=== PATIENT | male | born 1975 | race Caucasian/White ===

== ENCOUNTER → 2016-11-18 | Outpatient (CLI) | payer BC ==
[2016-11-18 14:28] LABS: Potassium 4.3 mmol/L (3.5-5.1)
[2016-11-18 14:38] LABS: Basophils % (A) 1 %; CH 33.3; CHCM 36.5; Eosinophils # (A) 0.2 k/uL (0-0.7); Eosinophils % (A) 4 %; HCT 45.2 % (39.0-53.0); HDW 2.65; HGB 16.4 gm/dL (13.0-17.5); Luc # (Auto) 0.15; Luc % (Auto) 3; Lymphocytes # (A) 1.9 k/uL (1.0-4.8); Lymphocytes % (A) 37 %; MCH 33.3 pg (25.0-35.0); MCHC 36.3 g/dL (31.0-37.0); MCV 91.7 fL (80.0-100.0); Mean Platelet Volume 6.5; Monocytes # (A) 0.3 k/uL (0-1.0); Monocytes % (A) 7 %; Neutrophils # (A) 2.4 k/uL (1.3-7.7); Neutrophils % (A) 48 %; RBC 4.93 m/uL (4.30-5.90); RDW 12.5 % (11.5-15.5); WBC (Perox) 5.01
== END | disposition home or self-care (01) ==
LOC: LABPAT 13:25
PROVIDERS: ATTEND Orthopaedic Surgery
DX: Z01.818 Encounter for other preprocedural examination (principal); M23.91 Unspecified internal derangement of right knee
CPT/HCPCS: 80051; 85025

== ENCOUNTER 2016-11-21 07:58 | Day surgery (SDC) | payer BC ==
[2016-11-15 12:04] VITALS: BMI 31.0
--- NOTE | 2016-11-21 07:26 | P.HPOR ---
History of Present Illness H&P Date: 11/21/16 Chief Complaint: Left knee pain 41-year-old patient seen with progressive left knee pain. After treatment options were discussed, patient elected to proceed with arthroscopy. Past Medical History Past Medical History: Asthma, GERD/Reflux, Osteoarthritis (OA) History of Any Multi-Drug Resistant Organisms: None Reported Past Surgical History: Appendectomy Additional Past Surgical History / Comment(s): carpal tunnel surgery bilat 15 yrs ago, injections to pati knees, repair of torn miniscus Past Anesthesia/Blood Transfusion Reactions: No Reported Reaction Smoking Status: Never smoker - Past Family History Mother Family Medical History: Cancer Additional Family Medical History / Comment(s): hx. mom - breast Father Family Medical History: Musculoskeletal Disorder Additional Family Medical History / Comment(s): father-multiple sclerosis Medications and Allergies Home Medications Medication Instructions Recorded Confirmed Type Azelastine HCl [Astelin] 2 spray EA NOSTRIL BID 08/23/13 11/15/16 History Fluticasone/Salmeterol [Advair 1 puff INHALATION Q12HR 08/23/13 11/15/16 History 500-50 Diskus] Levocetirizine Dihydrochloride 7.5 mg PO BID 08/23/13 11/15/16 History [Xyzal] Montelukast [Singulair] 10 mg PO HS 08/23/13 11/15/16 History Omalizumab [Xolair] 375 mg SQ DIRECTED 11/20/15 11/15/16 History Meloxicam 15 mg PO Q6HR PRN 11/15/16 11/15/16 History Omeprazole [PriLOSEC] 10 mg PO DAILY 11/15/16 11/15/16 History Allergies Allergy/AdvReac Type Severity Reaction Status Date / Time Sulfa (Sulfonamide Allergy Rash/Hives Verified 11/15/16 11:55 Antibiotics) Physical Examination Osteopathic Statement: *. No significant issues noted on an osteopathic structural exam other than those noted in the History and Physical/Consult. - Knee left Effusion grade: grade 1 Tenderness with palpation: medial ROM: extension: 0 degrees ROM: flexion: 120 degrees Meniscal tests: medial meniscal tests: positive, medial joint line pain: positive Results X-ray left: Mild medial compartment osteoarthritis, bipartite patella MRI left knee: Medial meniscal tear Assessment and Plan Plan: Assessment: Internal derangement left knee with medial meniscal tear Plan: Arthroscopy left knee with partial meniscectomy and debridement Time with Patient: Less than 30
[~2016-11-21 07:58] MED LIST: DEXAMETHASONE SOD PHOSPHATE 10 MG/ML 1 ML VIAL IV ONE; HYDROmorphone 1 MG/ML 1 ML SYRINGE IVP PRN; LACTATED RINGERS 1,000 ML IV SCH; ONDANSETRON 4 MG/2 ML VIAL IVP ONE; ceFAZolin 2 GM in SODIUM CHLORIDE 0.9% 100 ML IVPB ONE
[2016-11-21] MEDS ORDERED: LIDOCAINE 1% 20 ML VIAL (10MG/ML) FOR IV START INTRADERMA ONE (08:41)
[2016-11-21] MEDS ORDERED: fentaNYL (PF) 50 MCG/ML 2 ML AMP ONE (09:07)
[2016-11-21] MEDS ORDERED: MIDAZOLAM 2 MG/2 ML VIAL ONE (09:07)
[2016-11-21] MEDS ORDERED: LIDOCAINE 1% INJ 10MG/ML (20 ML MDV) ONE (09:07)
[2016-11-21] MEDS ORDERED: SUCCINYLCHOLINE CHLORIDE 100 MG/5 ML SYR IV ONE (09:07)
[2016-11-21] MEDS ORDERED: KETOROLAC 30 MG/ML 1 ML VIAL ONE (09:07)
[2016-11-21] MEDS ORDERED: PROPOFOL 10 MG/ML 20 ML VIAL IV ONE (09:07)
[2016-11-21] MEDS ORDERED: BUPIVACAINE (PF) 0.25% 30 ML VIAL SQ ONE ×2 (09:14→09:56)
--- NOTE | 2016-11-21 10:10 | P.OP ---
Date of Procedure: 11/21/16 Preoperative Diagnosis: Internal derangement left knee Postoperative Diagnosis: 1. Tear medial and lateral meniscus left knee 2. 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 Grade 3/4 chondromalacia patellofemoral joint left knee 5. Reactive synovitis medial, lateral and suprapatellar compartments left knee Procedure(s) Performed: 1. Arthroscopic partial medial and lateral meniscectomy left knee 2. Arthroscopic chondroplasty medial femoral condyle and medial tibial plateau left knee 3. Arthroscopic chondroplasty lateral femoral condyle left knee with microfracture 4. Arthroscopic chondroplasty patellofemoral joint left knee 5. Arthroscopic partial synovectomy medial, lateral and suprapatellar compartments left knee Implants: Anesthesia: MARIA TA, local Surgeon: Jayant Hernandez Estimated Blood Loss (ml): 10 Pathology: none sent Condition: stable Disposition: PACU Indications for Procedure: 41-year-old patient seen with left knee pain. After having treatment options discussed, he elected to proceed with arthroscopy. Operative Findings: See description of procedure Description of Procedure: Patient was taken to the operative suite. Patient underwent a general anesthetic by the department of anesthesia. Patient was given preoperative antibiotics. The left lower extremity was placed in a well-padded arthroscopic leg pozo. The left leg was prepped and draped in the normal sterile orthopedic fashion. A lateral parapatellar and suprapatellar incision was made. Trochars were inserted. Arthroscopy was initiated. Suprapatellar pouch revealed thick reactive synovitis. The patellofemoral joint appeared articulate congruently. There was grade 3/4 chondromalacia of both the patella and femoral sulcus with osteochondral tears.. The scope was guided into the medial gutter. No loose bodies or plica were identified. The scope was then guided into the medial compartment. A medial parapatellar incision was made. Trocar inserted followed by probe. There was a complex tear posterior horn medial meniscus. There were grade 2/3 chondromalacia changes of the medial femoral condyle and grade 2/3 chondromalacia changes of the tibial plateau. There osteochondral tears noted on both sides. There was reactive synovitis anteriorly. A partial medial meniscectomy was performed on a stable tissue. I performed a chondroplasty of the medial femoral condyle and tibial plateau as well as a partial synovectomy. The residual meniscus was found to be stable as was the residual osteochondral surfaces medial femoral condyle and tibial plateau. Scope and probe were then guided into the intercondylar notch. Cruciates were identified, probed and found to be stable. The scope and probe were then guided into lateral compartment. There was a complex tear posterior medial corner lateral meniscus. Superficial tearing of the midbody as was a small radial tear anterior horn were noted as well. There was an area of grade 4 chondromalacia central weightbearing surface lateral femoral condyle with some peripheral osteochondral tears. Reactive synovitis noted anteriorly. A partial lateral meniscectomy was now performed on a stable tissue. I performed a chondroplasty lateral femoral condyle partial synovectomy. I proceeded with a microfracture to the lateral femoral condyle as her were areas of exposed bone. I reintroduced my shaver and made sure the residual suture surfaces was stable debriding out the area where perform the microfracture. The residual area was probed and found to be stable. The residual meniscus was stable. The scope was in guided back into the suprapatellar compartment. I introduced a motorized shaver into the super patellar compartment. I debrided some piecemeal fragments of meniscus I encountered. I performed a chondroplasty of both the patella and femoral sulcus getting down to stable tissue. I performed a partial synovectomy. The shaver was removed. I took one more look on the entire knee, no residual debris. Instruments were now removed from the joint. The joint was infiltrated with .25% Marcaine. Steri-Strips were applied to the portal sites. Sterile dressings were applied. The patient was placed into a DELFINA hose. No tourniquet was utilized. The patient was awakened, transferred to a bed and taken to recovery stable satisfactory condition.
[2016-11-21 10:31] VITALS: TEMP 98
[2016-11-21 11:31] VITALS: RESP 18
[2016-11-21 12:38] VITALS: BP 133/72; PULSE 72
== END 2016-11-21 12:30 | disposition home or self-care (01) ==
LOC: OR 07:58
PROVIDERS: ATTEND Orthopaedic Surgery
DX: S83.242A Other tear of medial meniscus, current injury, left knee, initial encounter (principal); S83.282A Other tear of lateral meniscus, current injury, left knee, initial encounter; X58.XXXA Exposure to other specified factors, initial encounter; M22.42 Chondromalacia patellae, left knee; M65.862 Other synovitis and tenosynovitis, left lower leg; Z79.51 Long term (current) use of inhaled steroids; Z79.899 Other long term (current) drug therapy; Z88.2 Allergy status to sulfonamides
CPT/HCPCS: 29880; J2250; J1100; J0690; J2405; J2001; J3010; J1885; J0330; J2704

== ENCOUNTER → 2022-08-07 | Outpatient (CLI) | payer BC ==
--- NOTE | 2022-08-07 10:48 | CA ---
Transthoracic Echo Report Name: Boy Rodriguez Age: 47 Gender: M : 1975 Exam Date: 08/07/2022 08:40 Exam Location: [facility] Ht (in): 69 Wt (lb): 220 Ordering Physician: Rianna Harrington DO Attending/Referring Phys: [id number], Len Blueprint Maker Grace Kelley, [facility] Procedure CPT: Indications: R002 Cardiac Hx: Technical Quality: Good Contrast 1: Total Dose (mL): Contrast 2: Total Dose (mL): MEASUREMENTS (Male / Female) Normal Values 2D ECHO LV Diastolic Diameter PLAX 4.4 cm 4.2 - 5.9 / 3.9 - 5.3 cm LV Systolic Diameter PLAX 2.8 cm IVS Diastolic Thickness 1.2 cm 0.6 - 1.0 / 0.6 - 0.9 cm LVPW Diastolic Thickness 1.2 cm 0.6 - 1.0 / 0.6 - 0.9 cm LV Relative Wall Thickness 0.5 RV Internal Dim ED PLAX 3.1 cm LA Systolic Diameter LX 3.8 cm 3.0 - 4.0 / 2.7 - 3.8 cm LA Volume 57.1 cm??? 18 - 58 / 22 - 52 cm??? M-MODE Aortic Root Diameter MM 3.6 cm MV E Point Septal Separation 0.7 cm AV Cusp Separation MM 2.5 cm DOPPLER AV Peak Velocity 150.8 cm/s AV Peak Gradient 9.1 mmHg MV Area PHT 4.0 cm??? Mitral E Point Velocity 110.7 cm/s Mitral A Point Velocity 113.7 cm/s Mitral E to A Ratio 1.0 MV Deceleration Time 189.3 ms MV E' Velocity 9.2 cm/s Mitral E to MV E' Ratio 12.0 TR Peak Velocity 224.2 cm/s TR Peak Gradient 20.1 mmHg Right Ventricular Systolic Press 24.4 mmHg FINDINGS Left Ventricle Left ventricular ejection fraction is estimated at 55-60 %. Left ventricular cavity size normal. Mild concentric left ventricular hypertrophy. Right Ventricle Normal right ventricular size and function. Right ventricular systolic pressure within normal limits. Right Atrium Normal right atrial size. Left Atrium Normal left atrial size. Mitral Valve Structurally normal mitral valve. No mitral stenosis,or prolapse. Trace mitral regurgitation. Aortic Valve Trileaflet aortic valve. No aortic valve stenosis or regurgitation.aortic valve sclerosis. Tricuspid Valve Structurally normal tricuspid valve. Trace to mild tricuspid regurgitation. Pulmonic Valve Structurally normal pulmonic valve. Trace pulmonic regurgitation. Pericardium Normal pericardium. No pericardial effusion. Aorta Normal size aortic root and proximal ascending aorta. CONCLUSIONS 1. Normal left ventricle size and systolic function 2. Trace mitral with trace to mild tricuspid regurgitation. Previewed by: Dr. Jay Paulino MD (Electronically Signed) Final Date: 07 Aug 2022 10:47
== END | disposition home or self-care (01) ==
LOC: RADECHMAIN 08:22
PROVIDERS: ATTEND Family Medicine
DX: I08.1 Rheumatic disorders of both mitral and tricuspid valves (principal)
CPT/HCPCS: 93306

== ENCOUNTER 2023-02-11 08:03 | Day surgery (SDC) | payer BC ==
[2023-02-06 14:58] VITALS: BMI 31.7
[2023-02-11] MEDS: SODIUM CHLORIDE 0.9% 1,000 ML IV SCH ×2 (08:33→20:57)
[2023-02-11 08:46] LABS: Basophils % (A) 1 %; Eosinophils # (A) 0.4 k/uL (0-0.7); Eosinophils % (A) 7 %; HCT 48.5 % (39.0-53.0); Lymphocytes # (A) 2.1 k/uL (1.0-4.8); Lymphocytes % (A) 40 %; MCH 33.1 pg (25.0-35.0); MCV 94.3 fL (80.0-100.0); Mean Platelet Volume 6.8; Monocytes # (A) 0.4 k/uL (0-1.0); Monocytes % (A) 7 %; Neutrophils # (A) 2.3 k/uL (1.3-7.7); Neutrophils % (A) 42 %; Platelet Count 233 k/uL (150-450); RBC 5.15 m/uL (4.30-5.90); WBC 5.3 k/uL (3.8-10.6)
[2023-02-11 08:59] LABS: ALT 41 U/L (4-49); AST 38 U/L (17-59); African American GFR (CKD) >90 (>60 ml/min/1.73 sqM); Albumin 4.6 g/dL (3.5-5.0); Alkaline Phosphatase 70 U/L (38-126); Anion Gap 10 mmol/L; Blood Urea Nitrogen 14 mg/dL (9-20); Calcium 9.3 mg/dL (8.4-10.2); Carbon Dioxide 27 mmol/L (22-30); Chloride 103 mmol/L (98-107); Glucose 98 mg/dL (74-99); Non-African American GFR(CKD) >90 (>60 ml/min/1.73 sqM); Potassium 4.2 mmol/L (3.5-5.1); Sodium 140 mmol/L (137-145); Total Bilirubin 0.9 mg/dL (0.2-1.3); Total Protein 7.7 g/dL (6.3-8.2)
[2023-02-11] MEDS ORDERED: LIDOCAINE 1% INJ 10MG/ML (20 ML MDV) ONE (11:13)
[2023-02-11] MEDS ORDERED: PROPOFOL 10 MG/ML 20 ML VIAL IV ONE (11:36)
[2023-02-11] MEDS ORDERED: fentaNYL (PF) 50 MCG/ML 2 ML AMP ONE (11:36)
[2023-02-11] MEDS ORDERED: MIDAZOLAM 2 MG/2 ML VIAL ONE (11:36)
[2023-02-11] MEDS ORDERED: SUCCINYLCHOLINE CHLORIDE 200 MG/10 ML VIAL IV ONE (11:36)
[2023-02-11] MEDS ORDERED: HEPARIN SODIUM,PORCINE 10,000 UNIT/ML 1 ML VIAL ONE (11:36)
[2023-02-11] MEDS ORDERED: ATROPINE SULFATE 0.4 MG/ML 1 ML VIAL ONE (11:36)
[2023-02-11] MEDS ORDERED: HEPARIN SOD,PORK IN 0.45% NACL 25,000 UNIT in 0.45% NACL 1 250ML.BAG IV ONE (11:55)
[2023-02-11] MEDS ORDERED: LIDOCAINE 1% INJ 10MG/ML (20 ML MDV) SQ ONE (12:35)
[2023-02-11] MEDS ORDERED: SODIUM CHLORIDE 0.9% 1,000 ML IV ONE (14:06)
[2023-02-11] MEDS ORDERED: IOPAMIDOL-370 100ML BTL INJ ONE (14:06)
[2023-02-11] MEDS ORDERED: ACETAMINOPHEN TAB 325 MG TAB PO PRN (15:21)
[2023-02-11] MEDS ORDERED: ACETAMINOPHEN IV (For NPO) 1,000 MG in EMPTY BAG 1 BAG IVPB ONE (15:21)
--- NOTE | 2023-02-11 15:30 | P.EPPROC ---
- EP Procedure Note Electrophysiology Procedure Note: PROCEDURE A. fib ablation with pulmonary vein isolation DIAGNOSIS Paroxysmal Atrial fibrillation, symptomatic, refractory to therapy RESULT No left atrial appendage mass seen on intracardiac echo, mild thickening of the pericardium Successful A. fib ablation/pulmonary vein isolation of all veins using cryo- ablation Complete entrance block in all 4 veins confirmed No evidence for phrenic nerve injury Esophageal deflection YES PROCEDURE DETAILS Written informed consent prior to procedure. Patient brought to the EP lab. General anesthesia given. Heparin administered. A city maintained above 300 seconds Both groins prepped and draped per protocol and venous sheaths placed. Esop hagus intubated, circa catheter for temperature monitoring an endoscope for possible esophageal deflection. Phrenic nerve monitoring performed. Esophageal temperature monitoring performed. Esophageal deflection performed if circa catheter overlapping with the balloon or circa temperature less than 27.5C Intracardiac echocardiography performed. Pericardium evaluated. Left atrial appendage evaluated. Left atrium evaluated along with pulmonary veins Transseptal catheterization performed under fluoroscopic guidance and intracardiac echo guidance Cryoablation sheath exchanged, balloon catheter along with achieve catheter placed in the left atrium. Pulmonary veins isolated in the following sequence: Left superior pulmonary vein followed by left inferior pulmonary vein, followed by right inferior pulmonary vein and lastly right superior pulmonary vein. Phrenic nerve stimulation along with capture thresholds within the SVC and right superior pulmonary vein to identify the phrenic nerve proximity to the cryo- balloon. Pulmonary veins isolated and confirmed with entrance and exit block. Phrenic nerve integrity confirmed at the end of the procedure Diagnostic catheters for the high right atrium, His bundle, coronary sinus placed. LA and RA pressures recorded RA pressure: 23/9/14 LA pressure: 23/9/15 Diagnostic EP study with coronary sinus pacing and recording Baseline measurements: Sinus cycle length: 54 ms, DC interval 172 ms, QRS 104 ms and QT 337 ms AH 86 and HV interval 52 ms Sinus node recovery times were 1143, 1248 and 1357 AV node Wenckebach block 340 ms Rapid atrial pacing after drug infusion No inducible atrial fibrillation Venous sheaths were removed and hemostasis assured with a closure device. Patient extubated and transferred to recovery PROCEDURES PERFORMED Diagnostic EP study CS pacing and recording Left and right transseptal catheterization Catheter the mapping of the tachycardia Intracardiac echocardiography Pulmonary vein isolation with transseptal and comprehensive EPS, [id number] Drug infusion, +[id number]
--- NOTE | 2023-02-11 19:09 | P.HPCAR ---
History of Present Illness This is Dr. Archuleta dictating an H/P on this patient The patient was interviewed and examined IMPRESSION / ASSESSMENT: Paroxysmal atrial fibrillation with RVR despite medical treatment Intolerant of metoprolol, patient has severe asthma Normal TSH Recurrent palpitations, uncontrolled with diltiazem and flecainide PLAN: Patient is stable from a cardiac vascular standpoint and we'll proceed with an A. fib ablation today Continue anticoagulation HPI Patient continues to have palpitations and atrial fibrillation No chest discomfort no loss of consciousness No fever chills cough expectoration ROS: No fever chills or rigors, no cough, phlegm or expectoration, no nausea, vomiting or diarrhea, no hematuria, dysuria, no musculoskeletal complaints, no strokes or seizures, no skin lesions. EXAMINATION: 120/61 mmHg pulse rate in the 70s afebrile Breath sounds are clear no rhonchi no crackles Heart sounds S1 and S2 are normal no murmurs Abdomen soft No JVD No lower extremity edema REVIEW OF LABS, ECG & MEDICAL DATA diltiazem, flecainide, ELIQUIS Physical Exam Vitals: Vital Signs Temp Pulse Pulse Pulse Resp BP BP 02/11/23 16:50 78 130/70 02/11/23 16:00 74 120/76 02/11/23 15:30 77 112/76 02/11/23 15:20 97.9 F 79 12 128/76 02/11/23 14:55 86 16 120/61 02/11/23 14:40 91 16 115/62 02/11/23 14:25 97.2 F L 92 16 117/63 02/11/23 08:30 98.1 F 66 18 148/88 Pulse Ox 02/11/23 16:50 96 02/11/23 16:00 96 02/11/23 15:30 93 L 02/11/23 15:20 95 02/11/23 14:55 96 02/11/23 14:40 98 02/11/23 14:25 96 02/11/23 08:30 100 Intake and Output 02/11/23 02/11/23 02/11/23 06:59 14:59 22:59 Intake Total 1028 100 Balance 1028 100 Intake: IV 1028 100 Other: Weight 98.2 kg 98.2 kg Past Medical History Past Medical History: Atrial Fibrillation, Asthma, GERD/Reflux, Osteoarthritis (OA) Additional Past Medical History / Comment(s): See Dr Archuleta's H&P History of Any Multi-Drug Resistant Organisms: None Reported Past Surgical History: Appendectomy, Joint Replacement Additional Past Surgical History / Comment(s): carpal tunnel surgery bilat 15 yrs ago, injections to pati knees, repair of torn miniscus,left tot knee replacement Past Anesthesia/Blood Transfusion Reactions: No Reported Reaction Additional Past Anesthesia/Blood Transfusion Reaction / Comment(s): no hx blood transfusion Past Psychological History: No Psychological Hx Reported Smoking Status: Never smoker Past Alcohol Use History: Occasional Past Drug Use History: None Reported - Past Family History Mother Family Medical History: Cancer Additional Family Medical History / Comment(s): breast Father Family Medical History: Musculoskeletal Disorder Additional Family Medical History / Comment(s): multiple sclerosis Physical Examination Vital Signs Temp Pulse Pulse Pulse Resp BP BP 02/11/23 16:50 78 130/70 02/11/23 16:00 74 120/76 02/11/23 15:30 77 112/76 02/11/23 15:20 97.9 F 79 12 128/76 02/11/23 14:55 86 16 120/61 02/11/23 14:40 91 16 115/62 02/11/23 14:25 97.2 F L 92 16 117/63 02/11/23 08:30 98.1 F 66 18 148/88 Pulse Ox 02/11/23 16:50 96 02/11/23 16:00 96 02/11/23 15:30 93 L 02/11/23 15:20 95 02/11/23 14:55 96 02/11/23 14:40 98 02/11/23 14:25 96 02/11/23 08:30 100 Intake and Output 02/11/23 02/11/23 02/11/23 06:59 14:59 22:59 Intake Total 1028 100 Balance 1028 100 Intake: IV 1028 100 Other: Weight 98.2 kg 98.2 kg Results 02/11/23 08:25 02/11/23 08:25 Cardiac Enzymes 02/11/23 Range/Units 08:25 AST 38 (17-59) U/L CBC 02/11/23 Range/Units 08:25 WBC 5.3 (3.8-10.6) k/uL RBC 5.15 (4.30-5.90) m/uL Hgb 17.0 (13.0-17.5) gm/dL Hct 48.5 (39.0-53.0) % Plt Count 233 (150-450) k/uL Comprehensive Metabolic Panel 02/11/23 Range/Units 08:25 Sodium 140 (137-145) mmol/L Potassium 4.2 (3.5-5.1) mmol/L Chloride 103 (98-107) mmol/L Carbon Dioxide 27 (22-30) mmol/L BUN 14 (9-20) mg/dL Creatinine 0.91 (0.66-1.25) mg/dL Glucose 98 (74-99) mg/dL Calcium 9.3 (8.4-10.2) mg/dL AST 38 (17-59) U/L ALT 41 (4-49) U/L Alkaline Phosphatase 70 (38-126) U/L Total Protein 7.7 (6.3-8.2) g/dL Albumin 4.6 (3.5-5.0) g/dL Current Medications Generic Name Dose Route Start Last Admin Trade Name Freq PRN Reason Stop Dose Admin Acetaminophen 650 mg 02/11/23 15:21 Acetaminophen Tab 325 Mg Tab PO Q6HR PRN Mild Pain (Scale 1 to 3) Apixaban 5 mg 02/11/23 21:00 Apixaban 5 Mg Tab PO BID CHAPARRITA Protocol Diltiazem HCl 120 mg 02/12/23 09:00 Diltiazem Cd 120 Mg Cap.Er.24h PO DAILY CHAPARRITA Flecainide Acetate 50 mg 02/11/23 21:00 Flecainide 50 Mg Tab PO Q12HR CHAPARRITA Sodium Chloride 1,000 mls @ 20 mls/hr 02/11/23 06:03 02/11/23 08:33 Saline 0.9% IV 03/13/23 06:04 1,000 mls .Q24H CHAPARRITA Administration Montelukast Sodium 10 mg 02/11/23 21:00 Montelukast 10 Mg Tab PO HS CHAPARRITA Pantoprazole Sodium 40 mg 02/12/23 07:30 Pantoprazole 40 Mg Tablet PO AC-BRKFST CHAPARRITA Sodium Chloride 12 ml 02/11/23 15:21 Sodium Chloride 0.9% Flush 10 Ml Syringe IV Q12HR PRN Line Flush Intake and Output 02/11/23 02/11/23 02/11/23 06:59 14:59 22:59 Intake Total 1028 100 Balance 1028 100 Intake: IV 1028 100 Other: Weight 98.2 kg 98.2 kg Patient Weight 02/12/23 06:59 Weight 98.2 kg 02/11/23 08:25 02/11/23 08:25
[2023-02-11] MEDS: APIXABAN 5 MG TAB PO SCH (19:56)
[2023-02-11] MEDS: FLECAINIDE 50 MG TAB PO SCH (19:56)
[2023-02-11] MEDS ORDERED: MONTELUKAST 10 MG TAB PO SCH (21:00)
[2023-02-12] MEDS ORDERED: PANTOPRAZOLE 40 MG TABLET PO SCH (07:30)
[2023-02-12 07:48] VITALS: BP 115/71; PULSE 66; RESP 16; TEMP 98
[2023-02-12] MEDS: APIXABAN 5 MG TAB PO SCH (08:06)
[2023-02-12] MEDS: FLECAINIDE 50 MG TAB PO SCH (08:06)
[2023-02-12] MEDS ORDERED: DILTIAZEM CD 120 MG CAP.ER.24H PO SCH (09:00)
--- NOTE | 2023-02-13 08:11 | P.DS ---
Providers Attending physician: Donte Archuleta Primary care physician: Rianna Harrington [facility] Course: Patient is doing well No chest discomfort dizziness or lightheadedness He has a sore throat and otherwise feels fine On examination Blood pressure 130/70 mmHg afebrile Pulse rate in the 70s Sinus rhythm Twelve-lead EKG is normal Impression Paroxysmal atrial fibrillation that has failed therapy recommended Status post cryoablation the pulmonary veins Plan instructions given to the patient post procedure Continue anticoagulation Continue other medications Follow-up with primary seam closer with a Stable for discharge today Patient Condition at Discharge: Stable Plan - Discharge Summary Discharge Rx Participant: No New Discharge Prescriptions: No Action Azelastine HCl [Astelin] 2 spray EA NOSTRIL BID Montelukast [Singulair] 10 mg PO HS Levocetirizine Dihydrochloride [Xyzal] 5 mg PO HS Omalizumab [Xolair] 1 dose SQ DIRECTED Omeprazole [PriLOSEC] 20 mg PO DAILY Cetirizine HCl/Pseudoephedrine [Zyrtec-D ER 5 mg-120 mg Tablet] 1 tab PO DAILY Albuterol Inhaler [Ventolin Hfa Inhaler] 1 - 2 puff INHALATION Q6H PRN PRN Reason: sob dilTIAZem HCL [dilTIAZem HCL 24Hr ER (CD)] 120 mg PO DAILY Flecainide [Tambocor] 50 mg PO Q12HR Apixaban [Eliquis] 5 mg PO BID Discharge Medication List Azelastine HCl [Astelin] 2 spray EA NOSTRIL BID 08/23/13 [History] Levocetirizine Dihydrochloride [Xyzal] 5 mg PO HS 08/23/13 [History] Montelukast [Singulair] 10 mg PO HS 08/23/13 [History] Omalizumab [Xolair] 1 dose SQ DIRECTED 11/20/15 [History] Omeprazole [PriLOSEC] 20 mg PO DAILY 11/15/16 [History] Albuterol Inhaler [Ventolin Hfa Inhaler] 1 - 2 puff INHALATION Q6H PRN 02/06/23 [History] Apixaban [Eliquis] 5 mg PO BID 02/06/23 [History] Cetirizine HCl/Pseudoephedrine [Zyrtec-D ER 5 mg-120 mg Tablet] 1 tab PO DAILY 02/06/23 [History] Flecainide [Tambocor] 50 mg PO Q12HR 02/06/23 [History] dilTIAZem HCL [dilTIAZem HCL 24Hr ER (CD)] 120 mg PO DAILY 02/06/23 [History] Follow up Appointment(s)/Referral(s): Chip Fu DO [STAFF PHYSICIAN] - 02/19/23 3:45 pm (Appointment will be at the [place] office) Patient Instructions/Handouts: Cardiac Ablation (GEN), Electrophysiology Study (GEN) Activity/Diet/Wound Care/Special Instructions: Post EP study - Ablation instructions 1. Keep access sites dry for 2 days. 2. No heavy lifting or straining for 2 days. 3. Avoid bending the hips repeatedly for 2 days. 4. You may go up and down stairs slowly Call if the following is noted 1. Bleeding, increasing swelling or pain at the access sites. 2. Increasing chest discomfort, especially upon taking a deep breath. 3. Increasing shortness of breath, at rest or with exertion. 4. Undue cough / phlegm 5. Difficulty or pain while swallowing. 6. Pain or change in color in the extremities. 7. Fever, chills, rigors. 8. Increasing headache or neurologic symptoms. 9. Dizziness, fainting, palpitations Discharge Disposition: HOME SELF-CARE
== END 2023-02-12 10:22 | disposition home or self-care (01) ==
LOC: CATHEP 08:03 → 6NMEDSUR 13:57 → CATHEP 02-12 10:22
PROVIDERS: ATTEND Internal Medicine Clinical Cardiac Electrophysiology
DX: I48.0 Paroxysmal atrial fibrillation (principal); J45.909 Unspecified asthma, uncomplicated; K21.9 Gastro-esophageal reflux disease without esophagitis; F10.90 Alcohol use, unspecified, uncomplicated; M19.90 Unspecified osteoarthritis, unspecified site; Z79.01 Long term (current) use of anticoagulants; Z90.49 Acquired absence of other specified parts of digestive tract; Z96.652 Presence of left artificial knee joint; Z98.890 Other specified postprocedural states; Z79.899 Other long term (current) drug therapy
CPT/HCPCS: 93656; 86900; 86901; 80053; 84443; 85025; 86850; C1894 ×2; C1769 ×3; C1760; C1730 ×2; C1759; C1893; C1733; C1766; J2250; J0330; J0461; J1644 ×2; J2001; J3010; J2704; Q9967